=== PATIENT | male | born 1965 | race Caucasian/White ===

== ENCOUNTER 2017-06-11 09:06 | Emergency (ER) | payer BC, OTHER ==
[2017-06-11 09:24] VITALS: TEMP 97.6
--- NOTE | 2017-06-11 09:54 | ED.PDOC ---
History of Present Illness - General Chief Complaint: Respiratory Problem Stated Complaint: cough x2 weeks Time Seen by Provider: 06/11/17 09:21 Source: patient, RN notes reviewed, Vital Signs reviewed Exam Limitations: no limitations - History of Present Illness Comments: Patient comes in with c/o of a persistent, productive cough. Reports 2 weeks ago he started with what felt like the flu, cough, fever, sweats and body aches. That has improved except for the cough. He occasionally coughs up some green/roland sputum. Does report he can't lay flat at night because if he does it makes him SOB. Timing/Duration: week - 2 weeks Cough Quality/Degree: moderate, productive cough Possible Cause: illness exposure - had similar symptoms Improving Factors: nothing Worsening Factors: other - Laying back Associated Symptoms: chest pain/soreness, cough, fever/chills, muscle aches, nasal congestion, shortness of breath Respiratory Risk Factors: exposure to illness Allergies/Adverse Reactions: Allergies NO KNOWN ALLERGY Allergy (Unverified 05/30/13 15:33) Home Medications: Ambulatory Orders Ascorbic Acid [Vitamin C] 500 mg PO DAILY 05/30/13 Krill Oil [Krill Oil 300 mg] 1 cap PO DAILY 05/30/13 Potassium [Chelated Potassium] 95 mg PO DAILY 05/30/13 Zinc [Zinc Aspartate] 40 mg PO DAILY 05/30/13 Azithromycin [Zithromax Z-Froy] 1 ea PO DAILY #1 pack 06/11/17 Benzonatate Perles [Tessalon Perles] 100 mg PO TID PRN #30 cap 06/11/17 Review of Systems - Review of Systems Constitutional: States: chills, diaphoresis, fever, malaise EENTM: States: see HPI, nose congestion Respiratory: States: see HPI, cough, short of breath Cardiology: States: no symptoms reported Gastrointestinal/Abdominal: States: no symptoms reported Musculoskeletal: States: see HPI, muscle pain Skin: States: no symptoms reported Neurological: States: no symptoms reported All other Systems: No Change from Baseline Past Medical History (General) - Patient Medical History Hx Congestive Heart Failure: No Hx Diabetes: No Surgical History: other Family Medical History - Family History Father Hx Family Hypertension: Yes Physical Exam - Physical Exam General Appearance: Alert, Comfortable, No apparent distress, Well Developed, Well Groomed, Well Hydrated, Well Nourished ENT Exam: normal ENT inspection, hearing grossly normal, TMs normal, pharynx normal Neck: non-tender, full range of motion, supple, normal inspection Respiratory: lungs clear, normal breath sounds, no respiratory distress, no accessory muscle use Cardiovascular/Chest: regular rate, rhythm, no gallop, no murmur Extremity: normal range of motion, normal inspection Neurologic: alert, normal mood/affect, oriented x 3 Skin Exam: normal color, warm/dry Comments: Vital Signs 06/11/17 06/11/17 09:18 09:25 Temperature 97.6 F Pulse Rate [ 84 left brachial] Respiratory 16 16 Rate Blood Pressure 172/92 [left brachial] O2 Sat by Pulse 93 L Oximetry Progress - EKG/XRAY/CT XRAY: chest - No acute findings per Radiologist Departure - Departure Clinical Impression: Bronchitis Time of Disposition: :17 Disposition: Discharge to Home or Self Care Condition: Good Departure Forms: ED Discharge - Pt. Copy, Patient Portal Self Enrollment Instructions: DI for Acute Bronchitis Diet: resume usual diet Activity: increase activity as tolerated Referrals: Timothy Vo III, MD [Primary Care Provider] - 1-2 Weeks Prescriptions: Azithromycin [Zithromax Z-Froy] 1 ea PO DAILY #1 pack Benzonatate Perles [Tessalon Perles] 100 mg PO TID PRN #30 cap PRN Reason: Cough Home Medications: Ambulatory Orders Ascorbic Acid [Vitamin C] 500 mg PO DAILY 05/30/13 Krill Oil [Krill Oil 300 mg] 1 cap PO DAILY 05/30/13 Potassium [Chelated Potassium] 95 mg PO DAILY 05/30/13 Zinc [Zinc Aspartate] 40 mg PO DAILY 05/30/13 Azithromycin [Zithromax Z-Rfoy] 1 ea PO DAILY #1 pack 06/11/17 Benzonatate Perles [Tessalon Perles] 100 mg PO TID PRN #30 cap 06/11/17
--- NOTE | 2017-06-11 10:12 | RAD ---
EXAM DESCRIPTION: Chest,2 Views CLINICAL HISTORY: cough/fever X 2 weeks COMPARISON: None FINDINGS: Two-view chest x-ray shows enlargement of the cardiac silhouette without pulmonary vascular congestion. The lungs are normally aerated and clear. Costophrenic angles are sharp. Osseous structures are unremarkable IMPRESSION: No radiographic evidence of acute cardiopulmonary disease. Electronically signed by: Jayme Mazariegos MD 06/11/2017 10:11 AM [facility]
[2017-06-11 11:39] VITALS: BP 157/91; O2SAT 94
== END 2017-06-11 10:35 | disposition home or self-care (01) ==
LOC: ER 09:06
DX: J40 Bronchitis, not specified as acute or chronic (principal)